=== PATIENT | male | born 1960 | race Native Hawaiian/Other Pacific Islander ===

== ENCOUNTER 2019-11-17 22:16 | Observation (INO) | payer OTHER ==
[2019-11-17] MEDS ORDERED: ASPIRIN 325 MG TAB PO ONE (22:21)
--- NOTE | 2019-11-17 23:05 | XRay Report ---
CHEST 2 VIEWS INDICATION / CLINICAL INFORMATION: MAIN: Chest Pain; Mid chest pain started eariler today. Heartburn pain. States has taken several OTC 's without relief. Burning and pressure. Denies N&V. Denies jose but states is breathing heavier. Nonr adiation. MAEW. Nonlabored. . COMPARISON: None available. FINDINGS: SUPPORT DEVICES: None. HEART / MEDIASTINUM: No significant abnormality. LUNGS / PLEURA: No significant pulmonary or pleural abnormality. No pneumothorax. ADDITIONAL FINDINGS: No significant additional findings. IMPRESSION: 1. No acute findings. Signer Name: Edison Gastelum MD Signed: 11/17/2019 11:01 PM Workstation Name: [email or web address]
[2019-11-17 23:28] LABS: Calcium 9.4 mg/dL (8.4-10.2)
[2019-11-18 00:22] LABS: Basophils # (Auto) 0.1 K/mm3 (0.0-0.1); Basophils % (Auto) 0.4 % (0.0-1.8); Eosinophils # (Auto) 0.1 K/mm3 (0.0-0.4); Hematocrit 39.7 % (35.5-45.6); Hemoglobin 13.5 gm/dl (11.8-15.2); Lymphocytes # (Auto) 2.7 K/mm3 (1.2-5.4); Lymphocytes % (Auto) 22.6 % (13.4-35.0); Mean Corpuscular HGB Conc 34 % (32-34); Mean Corpuscular Volume 90 fl (84-94); Platelet Count 377 K/mm3 (140-440); Red Cell Distribution Width 14.9 % (13.2-15.2)
[2019-11-18] MEDS ORDERED: HEPARIN 10,000 UNITS/10 ML VIAL IV ONE (00:45)
[2019-11-18] MEDS ORDERED: METOPROLOL TARTRATE 5 MG/5 ML INJ IV ONE (00:46)
--- NOTE | 2019-11-18 00:48 | Emergency Department Report ---
ED Chest Pain HPI - General Chief Complaint: Chest Pain Stated Complaint: CHEST PAIN Time Seen by Provider: 11/18/19 00:44 Source: patient Mode of arrival: Ambulatory Limitations: No Limitations - History of Present Illness Initial Comments: 59-year-old male presents to the emergency department with complaint of midsternal chest pain that started earlier this afternoon and has been going on since. He denies any shortness of breath, fever, nausea, vomiting or diaphoresis. It is a burning sensation and pressure that he is feeling and he thought it was heartburn. He is tried some [id number] medications like Tums without any relief. 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 The symptoms appear to worsen when he lays flat. 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 No recent travel or sick contacts at home. 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 Denies any current tobacco use or illicit drug use. - Related Data Previous Rx's Medication Instructions Recorded Last Taken Type amLODIPine 10 mg PO DAILY #60 tab 10/23/15 Unknown Rx Allergies Allergy/AdvReac Type Severity Reaction Status Date / Time No Known Allergies Allergy Verified 09/20/13 21:16 Heart Score - HEART Score History: Moderately suspicious EKG: Normal Age: 45-65 Risk factors: 1-2 risk factors Troponin: 1-3x normal limit HEART Score: 4 - Critical Actions Critical Actions: 4-6 pts:12-16.6% risk of adverse cardiac event. Should be admitted ED Review of Systems ROS: Stated complaint: CHEST PAIN Other details as noted in HPI Comment: All other systems reviewed and negative Constitutional: denies: chills, fever Eyes: denies: eye pain, vision change ENT: denies: ear pain, throat pain Respiratory: denies: cough, shortness of breath Cardiovascular: chest pain. denies: palpitations Gastrointestinal: denies: abdominal pain, vomiting Genitourinary: denies: dysuria, discharge Musculoskeletal: denies: back pain, arthralgia Skin: denies: rash, lesions Neurological: denies: headache, weakness ED Past Medical Hx - Past Medical History Previous Medical History?: Yes Hx Hypertension: Yes Hx CVA: Yes Hx Congestive Heart Failure: No Hx Diabetes: No Hx Asthma: No Hx COPD: No - Surgical History Past Surgical History?: Yes Hx Appendectomy: Yes Additional Surgical History: unknown - Social History Smoking Status: Never Smoker Substance Use Type: Alcohol - Medications Home Medications: Home Medications Medication Instructions Recorded Confirmed Last Taken Type amLODIPine 10 mg PO DAILY #60 tab 10/23/15 Unknown Rx ED Physical Exam - General Limitations: No Limitations - Other Other exam information: GENERAL: The patient is well-developed well-nourished. HENT: Normocephalic. Atraumatic. Patient has moist mucous membranes. EYES: Extraocular motions are intact. NECK: Supple. Trachea is midline. CHEST/LUNGS: Clear to auscultation. There is no respiratory distress noted. HEART/CARDIOVASCULAR: Regular. There is no tachycardia. There is no murmur. ABDOMEN: Abdomen is soft, nontender. Patient has normal bowel sounds. SKIN: Skin is warm and dry. NEURO: The patient is awake, alert, and oriented. The patient is cooperative. The patient has no focal neurologic deficits. Normal speech. MUSCULOSKELETAL: There is no tenderness or deformity. There is no evidence of acute injury. ED Course Vital Signs 11/17/19 11/18/19 11/18/19 22:21 00:46 01:11 Temperature 98.0 F Pulse Rate 91 H 78 78 Respiratory 18 18 Rate Blood Pressure 171/100 176/105 Blood Pressure 185/105 [Left] O2 Sat by Pulse 98 99 Oximetry 11/18/19 01:51 Temperature Pulse Rate 71 Respiratory 16 Rate Blood Pressure Blood Pressure 177/98 [Left] O2 Sat by Pulse 68 L Oximetry ANDREW score - Andrew Score Age > 65: (0) No Aspirin use within the Past 7 Days: (1) Yes 3 or more CAD Risk Factors: (0) No 2 or more Angina events in past 24 hrs: (1) Yes Known CAD with more than 50% Stenosis: (0) No Elevated Cardiac Markers: (1) Yes ST Deviation Greater than 0.5mm: (0) No ANDREW Score: 3 ED Medical Decision Making - Lab Data Result diagrams: 11/17/19 22:55 11/17/19 22:55 - EKG Data -: EKG Interpreted by Nv EKG shows normal: sinus rhythm, axis, intervals (Prolonged MO interval), QRS complexes, ST-T waves Rate: normal - EKG Data When compared to previous EKG there are: previous EKG unavailable Interpretation: other (Sinus rhythm, prolonged MO interval, normal axis, normal intervals, no ST elevation [place]) - Radiology Data Radiology results: image reviewed interpreted by me: Chest x-ray does not show any acute process. There are no pleural effusions, obvious pneumonia and there is no pneumothorax. - Medical Decision Making This patient presents to the emergency department with some substernal chest burning/discomfort. EKG does not show any morphology consistent with ST elevation [place]. Chest x-ray does not show any pneumonia, pleural effusions, pneumothorax, or any other acute process. Patient's first troponin came back at 0.084. The patient has been placed on a heparin drip for an NSTEMI. Patient will be admitted to the hospital for further evaluation and treatment and has been accepted for admission by the hospitalist, Dr. Rodriguez. Critical Care Time: Yes Critical care time in (mins) excluding proc time.: 35 Critical care attestation.: If time is entered above; I have spent that time in minutes in the direct care of this critically ill patient, excluding procedure time. Due to the immediate potential for life-threatening deterioration due to underlying cardiac condition, I spent 35 minutes of critical care time with the patient. Critical Care Time: 35 minutes ED Disposition Clinical Impression: NSTEMI (non-ST elevated myocardial infarction), Acute chest pain Hypertension Qualifiers: Hypertension type: essential hypertension Qualified Code(s): I10 - Essential (primary) hypertension Disposition: OP ADMIT IP TO THIS HOSP Is pt being admited?: Yes Condition: Serious Time of Disposition: 01:36
[2019-11-18] MEDS ORDERED: HEPARIN/ 0.45% NACL DRIP 25,000 UNIT/500 ML BAG IV SCH (01:00)
[2019-11-18] MEDS ORDERED: ASPIRIN 325 MG TAB ONE (01:06)
[2019-11-18] MEDS ORDERED: ONDANSETRON 4 MG/2 ML INJ IV PRN (01:26)
[2019-11-18] MEDS ORDERED: MAGNESIUM HYDROXIDE (MOM) ORAL LIQD UDC PO PRN (01:26)
[2019-11-18] MEDS ORDERED: ACETAMINOPHEN 325 MG TAB PO PRN (01:26)
[2019-11-18] MEDS ORDERED: NITROGLYCERIN 0.4 MG TAB SUBL SL PRN (01:26)
[2019-11-18] MEDS ORDERED: MORPHINE 2 MG/1 ML INJ IV PRN (01:26)
[2019-11-18 01:46] LABS: INR 0.94 (0.87-1.13)
[2019-11-18 01:47] LABS: Partial Thromboplastin Time 25.3 Sec. (24.2-36.6)
--- NOTE | 2019-11-18 01:51 | History and Physical Report ---
History of Present Illness Date of examination: 11/18/19 Date of admission: 11/18/2019 Chief complaint: Chest Pain History of present illness: 59-year-old male with known history of hypertension, CVA presented to the emergency room today complaining of chest pain. Chest pain is said to be midsternal started earlier in the day when he was helping his brother pour co ncrete. He denies any nausea vomiting, no shortness of breath, no fever or chills, no diaphoresis. Patient initially thought it was heartburn and he tried some [id number] medication without any significant improvement. Chest pain is even said to get worse when he lies down. He denies any recent travel and no sick contacts. Work-up in the emergency room revealed elevated troponin level, EKG showed some first-degree AV block. Past History Past Medical History: hypertension, stroke Past Surgical History: No surgical history Social history: smoking (Patient is a former smoker), alcohol abuse (Drinks alcohol occasionally) Family history: cancer (Mother had throat cancer) Medications and Allergies Allergies Allergy/AdvReac Type Severity Reaction Status Date / Time No Known Allergies Allergy Verified 09/20/13 21:16 Home Medications Medication Instructions Recorded Confirmed Last Taken Type amLODIPine 10 mg PO DAILY #60 tab 10/23/15 11/18/19 11/17/19 Rx NIFEdipine [Nifedipine ER] 60 mg 11/18/19 Unknown History hydroCHLOROthiazide [HCTZ] 25 mg PO QDAY 11/18/19 11/18/19 11/17/19 History Active Meds: Active Medications Acetaminophen (Tylenol) 650 mg PO Q4H PRN PRN Reason: Pain MILD(1-3)/Fever >100.5/GUZMAN Aspirin (Ecotrin) 325 mg PO QDAY MATIAS Heparin Sodium/Sodium Chloride (Heparin/ 0.45% Nacl-25,000 Unit/500 Ml) 25,000 unit in 500 mls @ 20 mls/hr IV TITRATE MATIAS; Protocol Last Admin: 11/18/19 01:12 Dose: 1,000 units/hr, 20 mls/hr Documented by: Magnesium Hydroxide (Milk Of Magnesia) 30 ml PO Q4H PRN PRN Reason: Constipation Morphine Sulfate (Morphine) 2 mg IV Q5MIN PRN PRN Reason: Chest Pain unrelieved by NTG Nitroglycerin (Nitrostat) 0.4 mg SL Q5M PRN PRN Reason: Chest Pain Ondansetron HCl (Zofran) 4 mg IV Q8H PRN PRN Reason: Nausea And Vomiting Sodium Chloride (Sodium Chloride Flush Syringe 10 Ml) 10 ml IV BID MATIAS Sodium Chloride (Sodium Chloride Flush Syringe 10 Ml) 10 ml IV PRN PRN PRN Reason: LINE FLUSH Sodium Chloride (Sodium Chloride Flush Syringe 10 Ml) 10 ml IV PRN PRN PRN Reason: LINE FLUSH Review of Systems Constitutional: no fever, no chills Cardiovascular: chest pain, no palpitations, no syncope Respiratory: no cough, no shortness of breath Gastrointestinal: nausea, no abdominal pain, no vomiting, no diarrhea Genitourinary Male: no dysuria, no hematuria, no flank pain Musculoskeletal: no neck pain, no low back pain Integumentary: no rash, no pruritis Neurological: no headaches, no confusion Psychiatric: no anxiety, no depression Exam - Constitutional Vitals: Temp Pulse Resp BP Pulse Ox 98.0 F 78 18 176/105 99 11/17/19 22:21 11/18/19 01:11 11/18/19 00:46 11/18/19 01:11 11/18/19 00:46 General appearance: Present: no acute distress, well-nourished - EENT Eyes: Present: PERRL, EOM intact ENT: hearing intact, clear oral mucosa, dentition normal - Neck Neck: Present: supple, normal ROM - Respiratory Respiratory effort: normal Respiratory: bilateral: CTA - Cardiovascular Rhythm: regular Heart Sounds: Present: S1 & S2 - Extremities Extremities: no ischemia, pulses intact, pulses symmetrical, No edema, Full ROM Peripheral Pulses: within normal limits - Abdominal General gastrointestinal: Present: soft, non-tender, non-distended, normal bowel sounds - Integumentary Integumentary: Present: clear, warm, dry - Musculoskeletal Musculoskeletal: strength equal bilaterally - Psychiatric Psychiatric: appropriate mood/affect, intact judgment & insight, cooperative - Neurologic Neurologic: CNII-XII intact, moves all extremities HEART Score - HEART Score EKG: Normal Age: 45-65 Risk factors: 1-2 risk factors Troponin: Troponin T 0.084 ng/mL (0.00-0.029) H 11/17/19 22:55 Troponin: 1-3x normal limit - Critical Actions Critical Actions: 4-6 pts:12-16.6% risk of adverse cardiac event. Should be admitted Results - Labs CBC & Chem 7: 11/17/19 22:55 11/17/19 22:55 Labs: Abnormal lab results 11/17/19 11/17/19 Range/Units 22:55 22:55 WBC 12.0 H (4.5-11.0) K/mm3 [place] % (Auto) 8.0 H (0.0-7.3) % [place] # 1.0 H (0.0-0.8) K/mm3 Seg Neutrophils # 8.2 H (1.8-7.7) K/mm3 Glucose 117 H (75-100) mg/dL Troponin T 0.084 H (0.00-0.029) ng/mL Assessment and Plan - Patient Problems (1) NSTEMI (non-ST elevated myocardial infarction) Current Visit: Yes Status: Acute Plan to address problem: Patient admitted and placed on daily aspirin. Sublingual nitroglycerin and IV morphine as needed for chest pain. He has also been placed on heparin drip. We will request cardiology evaluation and recommendation. (2) Hypertension Current Visit: Yes Status: Acute Qualifiers: Hypertension type: essential hypertension Qualified Code(s): I10 - Essential (primary) hypertension Plan to address problem: We will resume routine home medications and monitor vital signs closely. (3) DVT prophylaxis Current Visit: Yes Status: Acute Plan to address problem: Patient currently on anticoagulation. (4) Full code status Current Visit: Yes Status: Acute
[2019-11-18 02:31] LABS: Chol/HDL Ratio 6.11 %
[2019-11-18 08:19] VITALS: BP 164/96
--- NOTE | 2019-11-18 10:58 | Consultation ---
History of Present Illness Consult date: 11/18/19 Consult reason: chest pain, elevated troponin History of present illness: The patient is a 59-year-old man with a history of longstanding hypertension currently managed with lisinopril and hydrochlorothiazide. He was also hospitalized for a suspected CVA about 5 years ago, and a SIERRA at that time showed normal left ventricular ejection fraction of 60%, and no cardioembolic source. He has no residual motor deficits following the suspected CVA. He presents to the hospital at this time with chest pain. 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 His symptoms continued despite his stopping to rest, and he presented to the emergency room. ECG was normal sinus rhythm, no acute ischemic changes. However, at the cardiac troponin levels are abnormal, increasing from 0.8-0.21. Cardiac consultation was requested. Past History Past Medical History: hypertension, stroke Past Surgical History: No surgical history Social history: smoking (Patient is a former smoker), alcohol abuse (Drinks alcohol occasionally) Family history: cancer (Mother had throat cancer) Medications and Allergies Allergies Allergy/AdvReac Type Severity Reaction Status Date / Time No Known Allergies Allergy Verified 09/20/13 21:16 Home Medications Medication Instructions Recorded Confirmed Last Taken Type amLODIPine 10 mg PO DAILY #60 tab 10/23/15 11/18/19 11/17/19 Rx NIFEdipine [Nifedipine ER] 60 mg 11/18/19 Unknown History hydroCHLOROthiazide [HCTZ] 25 mg PO QDAY 11/18/19 11/18/19 11/17/19 History Active Meds: Active Medications Acetaminophen (Tylenol) 650 mg PO Q4H PRN PRN Reason: Pain MILD(1-3)/Fever >100.5/GUZMAN Aspirin (Ecotrin) 325 mg PO QDAY MATIAS Heparin Sodium/Sodium Chloride (Heparin/ 0.45% Nacl-25,000 Unit/500 Ml) 25,000 unit in 500 mls @ 20 mls/hr IV TITRATE MATISA; Protocol Last Titration: 11/18/19 07:23 Dose: 1,200 units/hr, 24 mls/hr Documented by: Magnesium Hydroxide (Milk Of Magnesia) 30 ml PO Q4H PRN PRN Reason: Constipation Morphine Sulfate (Morphine) 2 mg IV Q5MIN PRN PRN Reason: Chest Pain unrelieved by NTG Nitroglycerin (Nitrostat) 0.4 mg SL Q5M PRN PRN Reason: Chest Pain Ondansetron HCl (Zofran) 4 mg IV Q8H PRN PRN Reason: Nausea And Vomiting Sodium Chloride (Sodium Chloride Flush Syringe 10 Ml) 10 ml IV BID MATIAS Last Admin: 11/18/19 10:32 Dose: Not Given Documented by: Sodium Chloride (Sodium Chloride Flush Syringe 10 Ml) 10 ml IV PRN PRN PRN Reason: LINE FLUSH Sodium Chloride (Sodium Chloride Flush Syringe 10 Ml) 10 ml IV PRN PRN PRN Reason: LINE FLUSH Review of Systems Cardiovascular: chest pain, shortness of breath, no orthopnea, no palpitations, no rapid/irregular heart beat, no edema, no syncope, no lightheadedness Physical Examination Vital Signs Temp Pulse Resp BP Pulse Ox 98.0 F 91 H 18 171/100 98 11/17/19 22:21 11/17/19 22:21 11/17/19 22:21 11/17/19 22:21 11/17/19 22:21 General appearance: no acute distress HEENT: Positive: PERRL Neck: Positive: neck supple Cardiac: Positive: Reg Rate and Rhythm Lungs: Positive: Decreased Breath Sounds Neuro: Positive: Grossly Intact Abdomen: Positive: Soft Male genitourinary: Positive: deferred Skin: Positive: Clear Extremities: Absent: edema Results 11/17/19 22:55 11/17/19 22:55 Coagulation 11/18/19 Range/Units 00:50 PT 12.7 (12.2-14.9) Sec. INR 0.94 (0.87-1.13) APTT 25.3 (24.2-36.6) Sec. Lipids 11/17/19 Range/Units 22:55 Triglycerides 224 H (2-149) mg/dL Cholesterol 257 H (50-199) mg/dL HDL Cholesterol 42 (40-59) mg/dL Cholesterol/HDL Ratio 6.11 % CBC 11/17/19 Range/Units 22:55 WBC 12.0 H (4.5-11.0) K/mm3 RBC 4.40 (3.65-5.03) M/mm3 Hgb 13.5 (11.8-15.2) gm/dl Hct 39.7 (35.5-45.6) % Plt Count 377 (140-440) K/mm3 Lymph # 2.7 (1.2-5.4) K/mm3 [place] # 1.0 H (0.0-0.8) K/mm3 Eos # 0.1 (0.0-0.4) K/mm3 Baso # 0.1 (0.0-0.1) K/mm3 Comprehensive Metabolic Panel 11/17/19 Range/Units 22:55 Sodium 139 (137-145) mmol/L Potassium 4.1 (3.6-5.0) mmol/L Chloride 99.2 (98-107) mmol/L Carbon Dioxide 23 (22-30) mmol/L BUN 20 (9-20) mg/dL Creatinine 1.4 (0.8-1.5) mg/dL Glucose 117 H (75-100) mg/dL Calcium 9.4 (8.4-10.2) mg/dL EKG interpretations - Telemetry EKG Rhythm: Sinus Rhythm Assessment and Plan - Patient Problems (1) Acute coronary syndrome Current Visit: Yes Status: Acute Plan to address problem: Patient presents with exertional chest pain and increasing troponin levels consistent with acute coronary syndrome. I have canceled the stress test that was requested by the medical team and instead we will proceed with a diagnostic cardiac catheterization. The risks and benefits have been discussed with the patient and he consents to proceed.
[2019-11-18] MEDS ORDERED: SODIUM CHLORIDE 0.9% 500 ML 500 ML ONE (11:18)
[2019-11-18] MEDS: SODIUM CHLORIDE 0.9% 500 ML 0 ML ONE ×2 (12:10→12:17)
[2019-11-18] MEDS: HEPARIN/NS 5000 UNIT/500ML 1,000 ML IR ONE ×2 (12:10→12:17)
[2019-11-18] MEDS: fentaNYL 100 MCG/2 ML INJ ONE (12:17)
[2019-11-18] MEDS: MIDAZOLAM 2 MG/2 ML INJ ONE (12:17)
[2019-11-18] MEDS: LIDOCAINE (2%) 20 MG/1 ML VIAL 20 ML MDV INFILTRATI ONE (12:18)
[2019-11-18] MEDS: NITROGLYCERIN SYRINGE 3 ML ONE ×2 (12:19→12:20)
[2019-11-18] MEDS: HEPARIN 10,000 UNITS/10 ML VIAL ONE (12:19)
[2019-11-18] MEDS: VERAPAMIL 5 MG/2 ML INJ ONE (12:19)
--- NOTE | 2019-11-18 12:55 | Progress Note ---
Assessment and Plan - Patient Problems (1) Acute coronary syndrome Current Visit: Yes Status: Acute Subjective Date of service: 11/18/19 Interval history: Cardiac catheterization completed via the right radial approach, no complications. We found mild nonobstructive atherosclerosis, no significant obstructive coronary artery disease. Well-preserved left ventricular systolic function with ejection fraction approximately 55%. Recommend risk factor modification and medical therapy. No further cardiac intervention, patient is stable for cardiac discharge Objective Vital Signs Temp Pulse Pulse Pulse Pulse Resp BP 11/18/19 07:23 97.6 F 164/96 11/18/19 04:18 97.8 F 68 18 160/93 11/18/19 03:30 66 66 68 68 18 11/18/19 01:51 71 16 11/18/19 01:11 78 176/105 11/18/19 00:46 78 18 11/17/19 22:21 98.0 F 91 H 18 171/100 BP Pulse Ox 11/18/19 07:23 11/18/19 04:18 98 11/18/19 03:30 98 11/18/19 01:51 177/98 68 L 11/18/19 01:11 11/18/19 00:46 185/105 99 11/17/19 22:21 98 - Physical Examination HEENT: Positive: PERRL Neck: Positive: neck supple Neuro: Positive: Grossly Intact Abdomen: Positive: Soft Skin: Positive: Clear Extremities: Absent: edema - Labs and Meds Coagulation 11/18/19 Range/Units 00:50 PT 12.7 (12.2-14.9) Sec. INR 0.94 (0.87-1.13) APTT 25.3 (24.2-36.6) Sec. Lipids 11/17/19 Range/Units 22:55 Triglycerides 224 H (2-149) mg/dL Cholesterol 257 H (50-199) mg/dL HDL Cholesterol 42 (40-59) mg/dL Cholesterol/HDL Ratio 6.11 % CBC 11/17/19 Range/Units 22:55 WBC 12.0 H (4.5-11.0) K/mm3 RBC 4.40 (3.65-5.03) M/mm3 Hgb 13.5 (11.8-15.2) gm/dl Hct 39.7 (35.5-45.6) % Plt Count 377 (140-440) K/mm3 Lymph # 2.7 (1.2-5.4) K/mm3 [place] # 1.0 H (0.0-0.8) K/mm3 Eos # 0.1 (0.0-0.4) K/mm3 Baso # 0.1 (0.0-0.1) K/mm3 Comprehensive Metabolic Panel 11/17/19 Range/Units 22:55 Sodium 139 (137-145) mmol/L Potassium 4.1 (3.6-5.0) mmol/L Chloride 99.2 (98-107) mmol/L Carbon Dioxide 23 (22-30) mmol/L BUN 20 (9-20) mg/dL Creatinine 1.4 (0.8-1.5) mg/dL Glucose 117 H (75-100) mg/dL Calcium 9.4 (8.4-10.2) mg/dL
--- NOTE | 2019-11-18 13:21 | Cardiac Catherization Report ---
CARDIAC CATHETERIZATION REPORT REASON FOR PROCEDURE: The patient is a 59-year-old man with sleep apnea, hypertension, and COPD, who presented with exertional chest pain and elevated cardiac isoenzymes suggestive of acute coronary syndrome. A cardiac catheterization was recommended for further evaluation. PROCEDURES PERFORMED: 1. Left heart catheterization. 2. Selective left and right coronary angiography. 3. Left ventricle angiography. 4. Sedation time, start 12:13, end 12:33. DESCRIPTION OF PROCEDURE: The patient was prepped and draped in a sterile fashion after informed consent. Additional consent was obtained, in the setting of baseline, mild renal insufficiency. The patient understands the risks of contrast nephropathy and consents to proceed. The right radial cath site was prepped and draped after a negative Ruben's test. The right radial artery was entered using the Seldinger technique, followed by placement of a 6-Frisian hydrophilic sheath. Routine radial cocktail was administered via the sheath. Selective left and right coronary angiography was performed using a #3.5 left Dante and a #4 right Dante. The pigtail catheter was used for left ventricular angiography. The catheters were removed, sheath removed, and hemostasis achieved using a TR band. The patient was returned to the postprocedure unit in stable condition. There were no complications. FINDINGS: HEMODYNAMICS: Left ventricular end-diastolic pressure was 16, following coronary angiography. Ascending aortic pressure was 148/84. There was no significant pressure gradient on pullback across the aortic valve. CORONARY ANGIOGRAPHY: The left main coronary artery was free of significant disease. The left anterior descending artery and its diagonal branches contained diffuse mild atherosclerosis, with no significant obstructive lesions. The circumflex system was a large system that was also free of significant disease. The right coronary artery was large and dominant. This vessel contained mild diffuse atherosclerosis in its proximal, mid, and distal segments. There was a 40-50% luminal stenosis of the mid right coronary artery. Left ventricular systolic function was well preserved with estimated ejection fraction of 55%. CONCLUSION: 1. Diffuse mild nonobstructive atherosclerosis as described above, no significant obstructive lesions noted. 2. Well-preserved left ventricular systolic function, ejection fraction 55%. RECOMMENDATION: Risk factor modification and medical therapy. JOB# [id number] CA/NTS
--- NOTE | 2019-11-18 13:50 | Discharge Summary ---
Providers - Providers Date of Admission: 11/18/19 02:22 Date of discharge: 11/18/19 Attending physician: PRISCILA ROMERO 11/18/19 Consult to Cardiac Rehabilitation [CONS] Routine Reason For Exam: Phase I 11/18/19 01:30 Consult to Cardiology [CONS] Routine Consulting Provider: ELISA RODRÍGUEZ Reason For Exam: CHEST PAIN Primary care physician: [employer] Hospitalization Condition: Fair Hospital course: Patient is 59-year-old male with hypertension, CVA presented to the emergency room complaining of chest pain. Chest pain is said to be midsternal started earlier in the day when he was helping his brother pour concrete. He denies any nausea vomiting, no shortness of breath, no fever or chills, no diaphoresis. Patient initially thought it was heartburn and he tried some [id number] medication without any significant improvement. Work-up in the emergency room revealed elevated troponin level, EKG showed some first-degree AV block. Patient was given Aspirin and admitted to Telemetry. Second and third Troponin were further elevated. He was diagnosed with acute NSTEMI. Cardiac catheterization revealed mild non-obstructive atherosclerosis, no significant obstructive coronary artery disease, well-preserved left ventricular systolic function with ejection fraction approximately 55%. Cardiology recommended risk factor modification and medical therapy, and that patient is stable for cardiac discharge, so was discharged home 11/18/19. Not put on Beta lisa because of first degree AV Block on EKG. Disposition: DC-01 TO HOME OR SELFCARE - Discharge Diagnoses (1) NSTEMI (non-ST elevated myocardial infarction) Status: Acute (2) Hypertension Status: Acute Qualifiers: Hypertension type: essential hypertension Qualified Code(s): I10 - Essential (primary) hypertension (3) Dyslipidemia Status: Chronic (4) Tobacco abuse Status: Chronic Core Measure Documentation - Palliative Care Palliative Care/ Comfort Measures: Not Applicable - Core Measures Any of the following diagnoses?: acute FL - Acute FL Discharge Requirements Aspirin at discharge: Yes TAIWO/ARB for LVSD if EF <40%: Not Applicable Beta lisa at discharge: No Reason for no beta lisa on DC: Heart block Statin for LDL = or >100 mg/dl on DC: Yes Exam - Constitutional Vitals: Temp Pulse Resp BP Pulse Ox 97.6 F 68 18 164/96 98 11/18/19 07:23 11/18/19 04:18 11/18/19 04:18 11/18/19 07:23 11/18/19 04:18 Plan Activity: other (No strenous activity until cleared by Physician) Diet: low fat, low cholesterol, low salt Additional Instructions: 1.Follow up with PCP in 1 week. 2.Follow up with Dr. Rodríguez, cardiology in 1 week. 3.No strenous activity until cleared by Physician. Plan of Treatment: 1.Follow up with PCP in 1 week. 2.Follow up with Dr. Rodríguez, cardiology in 1 week 3.No strenous activity until cleared by Physician Follow up with: PRIMARY CARE, [Primary Care Provider] - 3-5 Days Prescriptions: RX: Aspirin EC [Ecotrin] 325 mg PO QDAY #30 tablet AtorvaSTATin [Lipitor] 40 mg PO QHS #30 tab
[2019-11-19] MEDS ORDERED: ASPIRIN EC 325 MG TAB PO SCH (10:00)
== END 2019-11-18 18:08 | disposition home or self-care (01) ==
LOC: ED 22:16 → 4A 11-18 02:22 → INTOOBSV 11-18 02:22
PROVIDERS: ADMIT Internal Medicine Geriatric Medicine; ATTEND Internal Medicine
DX: I21.4 Non-ST elevation (NSTEMI) myocardial infarction (principal); I24.9 Acute ischemic heart disease, unspecified; R07.89 Other chest pain; I10 Essential (primary) hypertension; E78.5 Hyperlipidemia, unspecified; Z87.891 Personal history of nicotine dependence; Z86.73 Personal history of transient ischemic attack (TIA), and cerebral infarction without residual deficits; Z90.49 Acquired absence of other specified parts of digestive tract
CPT/HCPCS: 36415; 71046; 80048; 80061; 84484; 85025; 85520; 85610; 85730; 93005; 93458; 96365; 96366; 96375; 96376; 99291; C1894; G0378; J1644; J2250; J3010; J7040; 96374; Q9967